=== PATIENT | female | born 1945 | race Caucasian/White ===

== ENCOUNTER → 2019-02-09 | Day surgery (SDC) | payer MEDICARE ==
[2019-02-08 12:14] LABS: BASOPHILS % 0.5 % (0.0-1.0); EOSINOPHILS # (AUTO) 0.2 (0.0-0.4); EOSINOPHILS % 3.4 % (0.0-6.0); HEMATOCRIT 42.3 % (34.2-44.1); HEMOGLOBIN 13.7 g/dL (12.0-16.0); LYMPHOCYTES # (AUTO) 1.6 (1.0-3.2); LYMPHOCYTES % 28.4 % (18.0-39.1); MEAN CORPUSCULAR HEMOGLOBIN 30.2 pg (28-32); MEAN CORPUSCULAR HGB CONC 32.4 g/dL (31-35); MEAN CORPUSCULAR VOLUME 93.2 fL (81-99); MONOCYTES # (AUTO) 0.6 (0.2-0.8); MONOCYTES % 10.2 % (4.4-11.3); NEUTROPHILS # (AUTO) 3.2 (2.1-6.9); NEUTROPHILS % 57.3 % (38.7-80.0); PLATELET COUNT 191 x10e3/uL (140-360); RED BLOOD COUNT 4.54 x10e6/uL (3.6-5.1); RED CELL DISTRIBUTION WIDTH 12.7 % (11.7-14.4)
[~2019-02-09] MED LIST: ACTOS15 MG PO; ADVAIR 250-501 EACH; APPLE CIDER VI300 MG PO; ARTHROTEC EC 71 EACH; ASPIR 8181 MG PO; ATORVASTATIN CA20 MG PO; BIOTIN2500 MCG PO; CLOPIDOGREL75 MG PO; COQ-10100 MG PO; DIPROLENE; FENTANYL CITRATE/PF 100MCG/2 ML INJ ONE; FISH OIL 1,2001 EACH PO; FUROSEMIDE20 MG PO; GLIPIZIDE ER5 MG PO; HYDROXYCHLOROQ200 MG PO; K-DUR20 ME2 PO; KRILL OIL500 MG PO; LEVOTHYROXINE112 MCG PO; LIDOCAINE HCL 2% LOCAL INJ 5 ML SDV VIAL INJ ONE; LOSARTAN POTAS100 MG PO; MELOXICAM15 MG PO; METOPROLOL SUCC25 MG PO; MIDAZOLAM HCL 2 MG/2 ML VIAL ONE; NITROSTAT0.4 MG; OMEPRAZOLE40 MG PO; OXYBUTYNIN CHLOR5 MG PO; PANTOPRAZOLE SO40 MG PO; POTASSIUM CHLO10 MEQ PO; PROPOFOL IV EMULSION 10 MG/ML 50 ML VIAL ONE; PROVENTIL HFA6.7 GM; RANEXA500 MG PO; RANITIDINE HCL150 MG PO; SENTRY SENIOR1 EACH PO; SIMVASTATIN20 MG PO; VITAMIN B12 PO; Z.0.ATENOLOL25 MG PO; Z.0.FUROSEMIDE20 MG PO; Z.0.HYDROXYCHLOROQ20 PO; Z.0.ISOSORBIDE MONO6; Z.0.OMEPRAZOLE20 M1 PO; Z.0.OXYBUTYNIN CHLOR PO; Z.0.PLAVIX75 MG PO; Z.0.SIMVASTATIN40 MG PO
--- OUTSIDE RECORDS SUMMARY | 2019-02-09 13:11 | XMS REPORT ---
Author Author [facility] Address Unknown Phone Unavailable Care Team Providers Care Environmental Services Lead Name Role Phone Unavailable Unavailable Problems This patient has no known problems. Allergies, Adverse Reactions, Alerts This patient has no known allergies or adverse reactions. Medications This patient has no known medications. Results Test Description Test Time Test Comments Text Results Atomic Results Result Comments BREAST ULTRASOUND BILATERAL 2018-12-29 16:49:04 - DIAG MAMM BILATERAL ALBERTO CAD DIGITALBILATERAL DIGITAL DIAGNOSTIC MAMMOGRAM 3D/2D WITH CAD: 12/29/2018CLINICAL: Palpable mass, right breast. Digital breast tomosynthesis was performed in addition to routine CC and MLO views. Current mammographic images were evaluated by either a [employer] M-Vu or a [employer] CAD (computer aided detection system). Comparison is made to exams dated 02/17/2018 mammogram - [facility], 11/19/2015 mammogram - [facility], and 01/29/2017 mammogram - [facility]. There are scattered fibroglandular tissues in both breasts. No suspicious mass, architectural distortion, malignant type calcification, or lymph node abnormality detected. INCOMPLETE ASSESSMENT: ADDITIONAL IMAGING EVALUATION RECOMMENDEDBilateral ultrasound pending for additional evaluation. There is no mammographic evidence of malignancy. - BREAST ULTRASOUND BILATERALULTRASOUND OF BOTH BREASTS AND BOTH AXILLA: 12/29/2018Comparison is made to exams dated 02/17/2018 mammogram - [facility], 11/19/2015 mammogram - [facility], and 01/29/2017 mammogram - [facility]. Real-time ultrasound of both breasts and both axilla and clinical breast exam was performed. The palpable mass felt by the patient is a benign area of fat necrosis in the right breast at 10 o'clock. No abnormalities were seen sonographically in the left breast or either axilla. IMPRESSION: BENIGN There is no sonographic evidence of malignancy. Resume annual screening mammography in one year. Nancy Wilkes M.D. dm/:12/29/2018 16:49:04 Entry: katie - 01/02/2019 09:30:39Imaging Technologist: Liliana Devine , [facility] sent: BIRADS 1-2 Combo FU Letter Mammogram BI-RADS: 0 Indeterminate Ultrasound BI-RADS: 2 Benign DIAG MAMM BILATERAL ALBERTO CAD DIGITAL 2018-12-29 16:49:04 - DIAG MAMM BILATERAL ALBERTO CAD DIGITALBILATERAL DIGITAL DIAGNOSTIC MAMMOGRAM 3D/2D WITH CAD: 12/29/2018CLINICAL: Palpable mass, right breast. Digital breast tomosynthesis was performed in addition to routine CC and MLO views. Current mammographic images were evaluated by either a [employer] M-Vu or a [employer] Image[employer] CAD (computer aided detection system). Comparison is made to exams dated 02/17/2018 mammogram - [facility]-, 11/19/2015 mammogram - [facility], and [facility] There are scattered fibroglandular tissues in both breasts. No suspicious mass, architectural distortion, malignant type calcification, or lymph node abnormality detected. INCOMPLETE ASSESSMENT: ADDITIONAL IMAGING EVALUATION RECOMMENDEDBilateral ultrasound pending for additional evaluation. There is no mammographic evidence of malignancy. - BREAST ULTRASOUND BILATERALULTRASOUND OF BOTH BREASTS AND BOTH AXILLA: 12/29/2018Comparison is made to exams [facility], 11[facility]2015 [facility]ogram - [facility], and [facility] Real-time ultrasound of both breasts and both axilla and clinical breast exam was performed. The palpable mass felt by the patient is a benign area of fat necrosis in the right breast at 10 o'clock. No abnormalities were seen sonographically in the left breast or either axilla. IMPRESSION: BENIGN There is no sonographic evidence of malignancy. Resume annual screening mammography in one year. Nancy Wilkes M.D. dm/:12/29/2018 16:49:04 Entry: katie - 01/02/2019 09:30:39Imaging Technologist: [facility]: BIRADS 1-2 Combo FU Letter Mammogram BI-RADS: 0 Indeterminate Ultrasound BI-RADS: 2 Benign
[2019-02-09 16:10] VITALS: BP 147/67
--- NOTE | 2019-02-09 22:32 | Operative Report ---
DATE OF PROCEDURE: 02/09/2019 SURGEON: Isaiah Scott MD PROCEDURE PERFORMED: Colonoscopy. PREOPERATIVE DIAGNOSIS: History of colon polyps. POSTOPERATIVE DIAGNOSES: History of colon polyps, none found and diverticulosis. PREOPERATIVE MEDICATIONS: Consisted of IV sedation administered. DESCRIPTION OF PROCEDURE: Under MAC anesthesia using an [employer] video colonoscope was inserted into the patient's rectum and advanced without difficulty to the level of the cecum. The colon was studied from that level back down to the rectum. There was no colon polyps found. Scattered diverticula were present in the sigmoid colon only. As the colonoscope was drawn from the patient's rectum, the procedure was then ended. In conclusion, we have findings of diverticulosis, history of colon polyps, none found. Isaiah Scott MD SAF/MODL /[id number]
== END | disposition home or self-care (01) ==
LOC: OR 13:05
PROVIDERS: ATTEND Internal Medicine Gastroenterology
DX: Z09 Encounter for follow-up examination after completed treatment for conditions other than malignant neoplasm (principal); Z86.010 Personal history of colon polyps; K57.30 Diverticulosis of large intestine without perforation or abscess without bleeding; K21.0 Gastro-esophageal reflux disease with esophagitis; K44.9 Diaphragmatic hernia without obstruction or gangrene; Z91.048 Other nonmedicinal substance allergy status; G47.30 Sleep apnea, unspecified; I25.810 Atherosclerosis of coronary artery bypass graft(s) without angina pectoris; I45.10 Unspecified right bundle-branch block; E11.9 Type 2 diabetes mellitus without complications; Z01.810 Encounter for preprocedural cardiovascular examination; Z01.812 Encounter for preprocedural laboratory examination; Z79.02 Long term (current) use of antithrombotics/antiplatelets; Z79.82 Long term (current) use of aspirin; Z79.84 Long term (current) use of oral hypoglycemic drugs; Z68.36 Body mass index [BMI] 36.0-36.9, adult; Z95.5 Presence of coronary angioplasty implant and graft; Z95.1 Presence of aortocoronary bypass graft
CPT/HCPCS: 36415 ×2; 45378; 82948; 85025; 93005; J2001; J2250; J2704; J3010

== ENCOUNTER 2019-03-12 16:17 | Emergency (ER) | payer MEDICARE ==
[~2019-03-12] VITALS: Ht 162.6 cm; Wt 103.4 kg
[~2019-03-12 16:17] MED LIST changes: -FENTANYL CITRATE/PF 100MCG/2 ML INJ ONE; -LIDOCAINE HCL 2% LOCAL INJ 5 ML SDV VIAL INJ ONE; -MIDAZOLAM HCL 2 MG/2 ML VIAL ONE; -PROPOFOL IV EMULSION 10 MG/ML 50 ML VIAL ONE
--- NOTE | 2019-03-12 18:00 | Diagnostic Imaging Report ---
LEFT KNEE X-RAY - 3 VIEWS HISTORY: ^knee pain ^[id number] ^[id number] COMPARISON: None available. FINDINGS: Bones: No acute displaced fracture. Osseous alignment is within normal limits. Joints: The joint spaces are well-maintained. Soft tissues: Mild vascular calcifications. Surgical clips in the soft tissues adjacent to the distal femur. IMPRESSION: No acute radiographic abnormality. Signed by: Dr. Paty Aguiar M.D. on 03/12/2019 5:57 PM
[2019-03-12 18:52] VITALS: BP 182/80
[2019-03-12] MEDS ORDERED: DEXAMETHASONE SOD PHOS 10 MG/1 ML VIAL IV ONE (19:00)
[2019-03-12] MEDS ORDERED: METHYLPREDNISOLONE SOD SUCC 125 MG/2ML VIAL IV ONE (19:30)
== END 2019-03-12 19:04 | disposition home or self-care (01) ==
LOC: ER 16:17
DX: M25.562 Pain in left knee (principal); S83.412A Sprain of medial collateral ligament of left knee, initial encounter; I10 Essential (primary) hypertension; E11.9 Type 2 diabetes mellitus without complications; E78.5 Hyperlipidemia, unspecified; I50.9 Heart failure, unspecified; M79.7 Fibromyalgia; Z95.1 Presence of aortocoronary bypass graft; Z98.84 Bariatric surgery status
CPT/HCPCS: 73562; 99283; J2930

== ENCOUNTER 2021-05-23 13:20 | Emergency (ER) | payer MEDICARE, OTHER ==
[~2021-05-23] VITALS: Ht 160 cm; Wt 95.7 kg
[2021-05-23] MEDS ORDERED: FAMOTIDINE20 MG PO (14:08)
[2021-05-23] MEDS ORDERED: NEURONTIN300 MG PO (14:08)
[2021-05-23] MEDS ORDERED: ULTRAM 50MG50 MG PO (14:54)
[2021-05-23] MEDS ORDERED: ACETAMINOPHEN500 MG PO (14:54)
[2021-05-23] MEDS ORDERED: ONDANSETRON HCL 4 MG ORAL DISINTEGRATING TAB PO ONE (15:00)
[2021-05-23] MEDS ORDERED: HYDROCODONE/APAP 5MG-325MG TAB PO ONE (15:00)
== END 2021-05-23 14:00 | disposition home or self-care (01) ==
LOC: FSED 13:56
DX: S00.83XA Contusion of other part of head, initial encounter (principal); S50.812A Abrasion of left forearm, initial encounter; M25.512 Pain in left shoulder; W01.0XXA Fall on same level from slipping, tripping and stumbling without subsequent striking against object, initial encounter; Y93.01 Activity, walking, marching and hiking; Y92.89 Other specified places as the place of occurrence of the external cause; I10 Essential (primary) hypertension; E11.9 Type 2 diabetes mellitus without complications; E78.5 Hyperlipidemia, unspecified; I50.9 Heart failure, unspecified; M79.7 Fibromyalgia; Z95.1 Presence of aortocoronary bypass graft; Z95.5 Presence of coronary angioplasty implant and graft; Z98.84 Bariatric surgery status
CPT/HCPCS: 70450; 71046; 73030; 99283; Q0162